=== PATIENT | male | born 1990 | race Caucasian/White ===

== ENCOUNTER 2016-06-17 10:48 | Emergency (ER) | payer OTHER ==
[2016-06-17 11:03] VITALS: BP 145/79; PULSE 84; RESP 18; TEMP 97.5; O2SAT 95
--- NOTE | 2016-06-17 11:25 | UCPHY ---
H & P Time Seen by Provider: 06/17/16 11:24 Patient Type: Established HPI/ROS: Chief complaint. Sinus pain HPI. 25-year-old male congestion for several days secondary to allergies. Today he woke up with pain and swelling to the right cheek. No fever. Hurts to bend over. Blowing purulent nasal drainage. No history of sinus problems. No sore throat. No cough ROS Constitutional. no fever/chills, no weakness Eyes. no problems with vision ENT. Right sinus pain with swelling and nasal drainage Cardiovascular. no chest pain Respiratory. no shortness of breath, no cough Abdominal. no abdominal pain, no nausea/vomiting, no diarrhea . no problems urinating MS. no calf pain/swelling, no neck/back pain, no joint pain Skin. no rash Lymph. no swollen glands Neuro. no headache, no dizziness, no difficulty walking or with speech Past Medical/Surgical History: Healthy Social History: Single, nonsmoker, no alcohol Smoking Status: Former smoker Physical Exam: General Appearance: Alert pleasant well-developed male mild distress vital signs stable Eyes: Pupils equal and round no pallor or injection. ENT, tympanic membranes are normal. Pharynx slightly injected without exudate. There is swelling and tenderness over the right maxillary sinus. Respiratory: There are no retractions, lungs are clear to auscultation. Cardiovascular: Regular rate and rhythm. Gastrointestinal: Abdomen is soft and nontender, no masses, bowel sounds normal. Neurological: Awake and alert, sensory and motor exams grossly normal. Skin: Warm and dry, no rashes. Musculoskeletal: Neck is supple nontender. Extremities symmetrical, full range of motion. Psychiatric: Patient is oriented X 3, there is no agitation. Constitutional: Initial Vital Signs Temperature (C) 36.4 C 06/17/16 11:00 Heart Rate 84 06/17/16 11:00 Respiratory Rate 18 06/17/16 11:00 Blood Pressure 145/79 H 06/17/16 11:00 O2 Sat (%) 95 06/17/16 11:00 O2 Delivery Mode Room Air Allergies/Adverse Reactions: No Known Allergies Allergy (Verified 06/17/16 10:59) Home Medications: Medication Instructions Recorded Amoxicillin/Clavulanate Pot 875 mg PO BID #14 tab 06/17/16 [Augmentin 875 MG TAB (*)] Medical Decision Making ED Course/Re-evaluation: Patient remained stable. He and I discussed treatment plan including criteria for return importance of follow-up further evaluation. He expresses understanding and agreement Differential Diagnosis: This does appear to be actual bacterial sinusitis. I have considered viral etiology as well as allergies. Departure - Departure Disposition: Home, Routine, Self-Care Clinical Impression: Sinusitis Qualifiers: Sinusitis location: maxillary Chronicity: acute Recurrence: non-recurrent Qualified Code(s): J01.00 - Acute maxillary sinusitis, unspecified Condition: Good Instructions: Sinusitis (ED) Additional Instructions: Drink plenty of fluids stay hydrated. Humidity from vaporizer or shower. Christopher- Synephrine nasal spray to promote drainage. Augmentin as antibiotic. Ibuprofen 600 mg every 6 hours for pain and inflammation. Return for worsening symptoms. Re-evaluation 3-4 days if not improved Referrals: Shane Camilo MD [Primary Care Provider] - 3-4 days, if not improved Prescriptions: Amoxicillin/Clavulanate Pot [Augmentin 875 MG TAB (*)] 875 mg PO BID #14 tab - PQRS PQRS Measurement: 134: Depression screening and followup, PRIME MD-PHQ2 (12 years and older) Over the last 2 weeks, how often have you been bothered by any of the following problems? 1. Feeling down, depressed, or hopeless? 2. Little interest or pleasure in doing things? Patient answered no to both 1 and 2 130: Documentation of medications. Reviewed all patient medications, doses, route and frequency. 226: Do you smoke? No.
== END 2016-06-17 11:42 | disposition home or self-care (01) ==
LOC: CED 10:48
DX: J01.00 Acute maxillary sinusitis, unspecified (principal); Z87.891 Personal history of nicotine dependence
CPT/HCPCS: 99214-PO; G0463-PO

== ENCOUNTER 2016-06-19 09:27 | Emergency (ER) | payer OTHER ==
--- NOTE | 2016-06-19 09:55 | UCPHY ---
H & P Time Seen by Provider: 06/19/16 09:54 Patient Type: Established HPI/ROS: CHIEF COMPLAINT: Swelling and mouth HISTORY OF PRESENT ILLNESS: Patient was seen 2 days ago and treated with Augmentin for sinusitis. He comes in today with 24 hours of swelling between his gum and upper lip on the right upper side of his maxilla. This is intraoral. REVIEW OF SYSTEMS: No fevers or chills, no sore throat. PAST MEDICAL HISTORY: Negative except as above Social history: Nonsmoker currently General Appearance: Alert and conversant, cooperative. Normal pharynx and no trismus. No external facial swelling. Patient has 7 mm swelling on the gum just above the right upper canine. There is fluctuance present. His tongue is pierced but no other intraoral lesions. No stridor or trouble breathing or drooling. Emergency Department course/MDM: Procedure: Abscess drainage. The patient's abscess was located on the upper right gum as described. I obtained verbal consent from the patient to drain the abscess who was informed about the possibility of bleeding and pain. The area was prepped and draped in the usual sterile fashion, with 1% xylocaine used for local anesthesia. The abscess was incised with a #11 scalpel and a small amount of purulent drainage was expressed. I irrigated the wound and placed iodoform packing. The patient tolerated the procedure well. The procedure was performed by myself. Smoking Status: Former smoker Constitutional: Initial Vital Signs Temperature (C) 36.4 C 06/19/16 09:36 Heart Rate 79 06/19/16 09:36 Respiratory Rate 18 06/19/16 09:36 Blood Pressure 152/78 H 06/19/16 09:36 O2 Sat (%) 95 06/19/16 09:36 O2 Delivery Mode Room Air Allergies/Adverse Reactions: No Known Allergies Allergy (Verified 06/19/16 09:39) Home Medications: Medication Instructions Recorded Amoxicillin/Clavulanate Pot 875 mg PO BID #14 tab 06/17/16 [Augmentin 875 MG TAB (*)] MDM/Departure - Depart Disposition: Home, Routine, Self-Care Clinical Impression: Abscess of buccal space of mouth Condition: Good Instructions: Amoxicillin/Clavulanate Potassium (By mouth) Additional Instructions: Continue Augmentin as prescribed. Hydrogen peroxide and water half and half swish and spit as discussed. ENT follow-up in 24 hours. Referrals: Shane Camilo MD [Primary Care Provider] - As per Instructions Sarthak Matias MD [Medical Doctor] - 1 day without fail (ENT followup) - PQRS PQRS Measurement: na
[2016-06-19 09:56] VITALS: BP 152/78; PULSE 79; RESP 18; TEMP 97.5; O2SAT 95
== END 2016-06-19 10:19 | disposition home or self-care (01) ==
LOC: CED 09:27
PROC: 0C9400Z Drainage of Buccal Mucosa with Drainage Device, Open Approach (ICD-10-PCS; principal; 2016-06-19)
DX: K12.2 Cellulitis and abscess of mouth (principal)
CPT/HCPCS: 99214-PO; G0463-PO